=== PATIENT | female | born 1975 | race Caucasian/White ===

== ENCOUNTER 2022-01-13 21:31 | Emergency (ER) | payer BC ==
[~2022-01-13] VITALS: Ht 175.3 cm; Wt 81.6 kg
[2022-01-13 21:51] VITALS: BP_SYST 161
--- NOTE | 2022-01-13 21:55 | NUR ---
Patient to ER chair for evaluation. Report given to TANNER Odom
--- NOTE | 2022-01-13 22:07 | NUR ---
ER Dr. Bermudez at bedside examining patient.
[2022-01-13] MEDS ORDERED: KETOROLAC TROMETHAMINE 60 MG/2 ML VIAL IM ONE (22:15)
[2022-01-13] MEDS ORDERED: IBUP-1971 PO (22:45)
--- NOTE | 2022-01-13 23:20 | NUR ---
Patient given written and verbal discharge instructions and verbalizes understanding. ER MD discussed with patient the results and treatment provided. Patient in stable condition. ID arm band removed. Rx of Ibuprofen given. Patient educated on pain management and to follow up with PMD. Pain Scale 4/10. Opportunity for questions provided and answered. Medication side effect fact sheet provided.
[2022-01-13 23:22] VITALS: BP_SYST 150
== END 2022-01-13 23:22 | disposition home or self-care (01) ==
LOC: SED 21:31
DX: S93.401A Sprain of unspecified ligament of right ankle, initial encounter (principal); Z79.899 Other long term (current) drug therapy; W01.0XXA Fall on same level from slipping, tripping and stumbling without subsequent striking against object, initial encounter; Y93.89 Activity, other specified; Y92.89 Other specified places as the place of occurrence of the external cause; Y99.8 Other external cause status
CPT/HCPCS: 99283; 73610; 96372; J1885